=== PATIENT | female | born 1980 ===

== ENCOUNTER → 2022-06-20 12:20 | Outpatient (CLI) | payer BC, SELFPAY ==
--- NOTE | ~2022-06-20 | MR_ITS ---
EXAMINATION: MR lumbar spine wo con DATE: 06/20/2022 12:46 INDICATION: Lumbar radiculopathy. Low back pain. Left leg pain. TECHNIQUE: Magnetic resonance imaging (MRI) of the lumbar spine was performed without intravenous con trast. Sequences included sagittal T2-weighted FSE, sagittal T2-weighted FS FSE, sagittal T1-weighted FSE, and axial T2-weighted FSE. COMPARISON: None FINDINGS: Bone alignment is normal. Vertebral body heights are normal. There is moderately decreased disc height at L5-S1 with endplate remodeling. The distal spinal cord signal intensity is normal. The conus medullaris is at T12-L1. The following disc levels are specifically discussed: L1-L2: The disc does not extend beyond the endplate margin. There is mild bilateral facet joint osteo arthritis. There is no neural foraminal stenosis. There is no central canal stenosis. L2-L3: The disc is bulging. There is no facet joint osteoarthritis. There is no neural foraminal sten osis. There is mild central canal stenosis. L3-L4: The disc is bulging. There is mild bilateral facet joint osteoarthritis. There is mild left ne ural foraminal stenosis. There is no central canal stenosis. L4-L5: The disc does not extend beyond the endplate margin. There is mild right facet joint osteoarth ritis. There is no neural foraminal stenosis. There is no central canal stenosis. L5-S1: The disc is bulging with superimposed left central extrusion with mass effect on the left S1 n erve root in left lateral recess. There is mild bilateral facet joint osteoarthritis. There is no neena ral foraminal stenosis. There is mild central canal stenosis. There is moderate stenosis of left late ral recess. IMPRESSION: 1. Moderate lower lumbar spondylosis. Of note, an extrusion at L5-S1 exerts mass effect on left S1 ne rve root. Reviewed, dictated and finalized at location A. SUPERVISOR IMPRESSION: 1. Moderate lower lumbar spondylosis. Of note, an extrusion at L5-S1 exerts mas s effect on left S1 nerve root.
== END ==
PROVIDERS: PCP Family Medicine; Visit Provider Family Medicine
DX: M47.26 Other spondylosis with radiculopathy, lumbar region (principal)
CPT/HCPCS: 72148